=== PATIENT | male | born 1955 | race Caucasian/White ===

== ENCOUNTER 2022-05-10 04:20 | Day surgery (SDC) | payer OTHER ==
[2022-05-10 10:19] VITALS: BMI 25.1
[2022-05-10] MEDS ORDERED: BACITRACIN ZINC 15 GM TUBE TOPICAL OINTMENT ONE (11:36)
[2022-05-10] MEDS ORDERED: LIDOCAINE HCL 2% JELLY 11 ML TP ONE (11:36)
[2022-05-10] MEDS ORDERED: LIDOCAINE HCL/PF 2% SDV 5ML VIAL ONE (11:53)
[2022-05-10] MEDS ORDERED: MIDAZOLAM HCL 2 MG/2 ML SINGLE DOSE VIAL ONE (11:53)
[2022-05-10] MEDS ORDERED: PROPOFOL 40 ML ONE (11:53)
[2022-05-10] MEDS ORDERED: DEXAMETHASONE SOD PHOSPHATE 4 MG/1 ML VIAL ONE (12:09)
[2022-05-10] MEDS ORDERED: ONDANSETRON 4 MG/2 ML VIAL ONE (12:09)
[2022-05-10] MEDS ORDERED: CLINDAMYCIN 600 MG PREMIX BAG IVPB ONE (12:18)
[2022-05-10] MEDS ORDERED: PROPOFOL 20 ML ONE (12:23)
[2022-05-10] MEDS ORDERED: oxyCODONE HCL 5 MG TABLET PO PRN (14:21)
[2022-05-10] MEDS ORDERED: ONDANSETRON 4 MG/2 ML VIAL IVPUSH PRN (14:21)
[2022-05-10] MEDS ORDERED: LACTATED RINGERS SOLUTION 1,000 ML IV SCH (14:30)
[2022-05-10] MEDS ORDERED: ACETAMINOPHEN INJECTION 100 ML IVPB ONE (15:29)
[2022-05-10 16:40] VITALS: RESP 20; TEMP 97.2
[2022-05-10 18:45] VITALS: BP 167/88; PULSE 70
== END 2022-05-10 18:48 | disposition home or self-care (01) ==
LOC: JASU-SURG 04:20 → MERGE 12:00 → JASU-SURG 18:48
PROVIDERS: ATTEND Urology
PROC: 0V503ZZ Destruction of Prostate, Percutaneous Approach (ICD-10-PCS; principal; 2022-05-10 12:00)
DX: C61 Malignant neoplasm of prostate (principal)
CPT/HCPCS: 55873; C2618; 94760; C1769